=== PATIENT | female | born 1985 | race Caucasian/White ===

== ENCOUNTER 2021-10-20 21:48 | Emergency (ER) | payer OTHER ==
[~2021-10-20] VITALS: Ht 154.9 cm; Wt 54.4 kg
[2021-10-20] MEDS ORDERED: OXYC-128 PO (22:26)
[2021-10-20] MEDS ORDERED: SULF1TAB48 PO (22:26)
--- NOTE | 2021-10-20 22:32 | NUR ---
Patient discharged to home in stable condition. Written and verbal after care instructions given. Patient verbalizes understanding of instructions. Stressed follow up or return to ER for worsening s/s. Patient ambulated with steady gait.
[2021-10-20 22:34] VITALS: BP 121/89
== END 2021-10-20 22:34 | disposition home or self-care (01) ==
LOC: ER 21:50
DX: L02.411 Cutaneous abscess of right axilla (principal)
CPT/HCPCS: 10060; 99283; J3490; A4663

== ENCOUNTER 2022-01-26 13:40 | Emergency (ER) | payer OTHER ==
[~2022-01-26] VITALS: Ht 154.9 cm; Wt 56.7 kg
[~2022-01-26 13:40] MED LIST: OXYC-128 PO; SULF1TAB48 PO
--- NOTE | 2022-01-26 14:07 | NUR ---
PT IS IN ROOM #1A. DR KURTZ EVALUATED THE PT.
[2022-01-26] MEDS ORDERED: FLUORESCEIN SODIUM 1 MG STRIP ONE (14:27)
[2022-01-26] MEDS ORDERED: TETRACAINE HCL 0.5% OPHT DROP 2 ML BOTTLE ONE (14:28)
[2022-01-26] MEDS ORDERED: TETRACAINE HCL 0.5% OPHT DROP 2 ML BOTTLE OP ONE (14:30)
[2022-01-26] MEDS ORDERED: FLUORESCEIN SODIUM 1 MG STRIP OP ONE (14:30)
[2022-01-26] MEDS ORDERED: GENT5DRO4 RIGHTEYE (14:49)
--- NOTE | 2022-01-26 15:25 | NUR ---
PT WAS D/C'd TO HOME. D/C INSTRUCTIONS GIVEN TO THE PT BY DR KURTZ.
[2022-01-26 15:26] VITALS: BP 139/81
== END 2022-01-26 15:27 | disposition home or self-care (01) ==
LOC: ER 13:40
DX: H00.011 Hordeolum externum right upper eyelid (principal)
CPT/HCPCS: A4663

== ENCOUNTER 2022-03-30 22:14 | Emergency (ER) | payer OTHER ==
[~2022-03-30] VITALS: Ht 154.9 cm; Wt 55.3 kg
[~2022-03-30 22:14] MED LIST changes: +GENT5DRO4 RIGHTEYE
[2022-03-31] MEDS ORDERED: IBUPROFEN 600 MG TABLET ONE (00:14)
[2022-03-31] MEDS ORDERED: IBUPROFEN 600 MG TABLET PO ONE (00:15)
--- NOTE | 2022-03-31 00:34 | NUR ---
XRAY AT B/S FOR RIGHT HAND AND WRSIT XRAY .
[2022-03-31 00:35] LABS: *URINE HCG, QUAL NEGATIVE (NEGATIVE)
--- NOTE | 2022-03-31 01:55 | NUR ---
DR: RIGOBERTO AT B/S AND SPOKED WITH PATIENT WITH REGARDS TO XRAY RESULTS AND D/C INSTRUCTIONS.
[2022-03-31] MEDS ORDERED: IBUP-1955 PO (02:12)
--- NOTE | 2022-03-31 02:14 | NUR ---
:RIGOBERTO AT B/S AND SPOKED WITH PATIENT AND EXPLAINED DISCHARGE DX. AND CARE .
--- NOTE | 2022-03-31 02:23 | NUR ---
Patient discharged to home in stable condition. Written and verbal after care instructions given. Patient verbalizes understanding of instructions.PATIENT STEADY OF GAIT AMBULATORY PATIENT MOTHER IS TAKING HER HOME WENT HOME WITH ALL BELONGINGS . Stressed follow up or return to ER for worsening s/s.
[2022-03-31 02:24] VITALS: BP 110/74
== END 2022-03-31 02:26 | disposition home or self-care (01) ==
LOC: ER 22:14
DX: S63.501A Unspecified sprain of right wrist, initial encounter (principal); S60.211A Contusion of right wrist, initial encounter; S60.221A Contusion of right hand, initial encounter; W10.8XXA Fall (on) (from) other stairs and steps, initial encounter; Y93.89 Activity, other specified; Y92.038 Other place in apartment as the place of occurrence of the external cause; S63.91XA Sprain of unspecified part of right wrist and hand, initial encounter
CPT/HCPCS: 73110; 73130; 84703; A4663

== ENCOUNTER 2022-10-26 20:10 | Emergency (ER) | payer OTHER ==
[~2022-10-26] VITALS: Ht 154.9 cm; Wt 63.5 kg
[~2022-10-26 20:10] MED LIST changes: +IBUP-1955 PO
--- NOTE | 2022-10-26 20:34 | NUR ---
PATIENT SITTING UP AT BEDSIDE, INFORMED OF PLAN OF CARE AWAITING MD EXAM.
--- NOTE | 2022-10-26 20:36 | NUR ---
AT BEDSIDE FOR EXAM.
[2022-10-26] MEDS ORDERED: AMOX500C2 PO (20:47)
[2022-10-26 20:50] VITALS: BP 127/71
--- NOTE | 2022-10-26 20:50 | NUR ---
ACI GIVEN, REMAINS STABLE FOR DISCHARGE HOME.
== END 2022-10-26 20:51 | disposition home or self-care (01) ==
LOC: ER 20:13
DX: O26.892 Other specified pregnancy related conditions, second trimester (principal); H66.92 Otitis media, unspecified, left ear; Z79.1 Long term (current) use of non-steroidal anti-inflammatories (NSAID); Z79.899 Other long term (current) drug therapy; Z3A.19 19 weeks gestation of pregnancy
CPT/HCPCS: A4663